=== PATIENT | female | born 1990 | race Caucasian/White ===

== ENCOUNTER → 2023-09-21 13:45 | Outpatient (CLI) | payer OTHER, SELFPAY ==
[2023-09-21 14:37] LABS: Influenza A - CEPHEID Flu A NEGATIVE (NEGATIVE); Influenza B - CEPHEID Flu B NEGATIVE (NEGATIVE); Respiratory Syncytial Virus Negative (Negative)
[2023-09-21 14:38] LABS: COVID-19 CEPHEID 4-PLEX PCR Negative (Negative)
== END ==
PROVIDERS: Family Provider Physician Assistant; Visit Provider Physician Assistant
DX: J02.9 Acute pharyngitis, unspecified (principal); R05.9 Cough, unspecified
CPT/HCPCS: 0241U; 87070

== ENCOUNTER → 2024-05-23 16:11 | Outpatient (CLI) | payer OTHER, SELFPAY ==
--- NOTE | 2024-05-23 16:14 | DI.RAD.S_ITS ---
PROCEDURE: XR FOOT LT MIN 3V INDICATIONS: bilateral foot pain TECHNIQUE: 3 views of the foot were acquired. COMPARISON: None. FINDINGS: Bones: No fractures or dislocations. No suspicious bony lesions. Minimal pes planus with weight-bearing. Soft tissues: No tibiotalar joint effusion. Achilles tendon appears normal. IMPRESSION: Minimal pes planus. No acute osseous abnormalities. No significant degenerative changes. Dictated by: Elie Sevilla M.D. on 05/23/2024 at 23:23 Approved by: Elie Sevilla M.D. on 05/23/2024 at 23:26
--- NOTE | 2024-05-23 16:14 | DI.RAD.S_ITS ---
PROCEDURE: XR FOOT RT MIN 3V INDICATIONS: bilateral foot pain TECHNIQUE: 3 views of the foot were acquired. COMPARISON: None. FINDINGS: Bones: No fractures or dislocations. No suspicious bony lesions. Borderline pes planus on weight-bearing views. Small plantar calcaneal enthesophyte. Soft tissues: No tibiotalar joint effusion. Achilles tendon appears normal. IMPRESSION: No acute fracture. Borderline pes planus. Small plantar calcaneal enthesophyte. No significant degenerative changes. Dictated by: Elie Sevilla M.D. on 05/23/2024 at 23:26 Approved by: Elie Sevilla M.D. on 05/23/2024 at 23:28
== END ==
PROVIDERS: Family Provider Physician Assistant; Referring Provider Podiatrist Foot & Ankle Surgery; Visit Provider Podiatrist Foot & Ankle Surgery
DX: M77.31 Calcaneal spur, right foot (principal); M79.672 Pain in left foot; M79.671 Pain in right foot
CPT/HCPCS: 73630

== ENCOUNTER 2025-04-02 06:13 | Day surgery (SDC) | payer OTHER, SELFPAY ==
[2025-03-25 10:44] VITALS: BMI 45.1
[2025-04-02] VITALS (7 sets, daily range): BP systolic 123–132; BP diastolic 60–81; PULSE 74–110; RESP 14–16; TEMP 36.1–36.8; O2SAT 96–98
[2025-04-02] MEDS: LACTATED RINGERS 1,000 ML 42 ML IV ×2 (06:48→09:54)
--- NOTE | 2025-04-02 07:03 | PM.HP.1 ---
History of Present Illness History of Present Illness Chief complaint: R foot/lower leg Narrative: 34 year old female here for right foot and ankle pain. She would like to proceed with surgical intervention due to continuous pain that failed conservative management that included physical therapy, orthotics, NSAIDs, and steroid injections. Pain inhibits ambulation at its worst, and the onset has been spontaneous. This negatively impacts the activities of daily livings when caring for the toddler. Patient denies n/v/f/c/sob/cp. [facility] Medical History (Updated 03/25/25 @ 10:40 by Opal Chapin RN) Anemia Epilepsy Arthritis Asthma Social History household members: spouse Smoking Status: Never smoker Meds Home Medications and Allergies Home Medications ?Medication ?Instructions ?Recorded ?Confirmed ?Type adalimumab-atto 40 mg/0.4 mL mg SUBCUT 08/01/24 08/01/24 History subcutaneous auto-injector (Amjevita(CF) Autoinjector) levetiracetam 1,000 mg tablet 1,000 mg PO BID 08/01/24 04/02/25 History (Keppra) sertraline 100 mg tablet 200 mg PO DAILY 08/01/24 04/02/25 History trazodone 50 mg tablet mg PO DAILY 08/01/24 08/01/24 History Allergies Allergy/AdvReac Type Severity Reaction Status Date / Time aspirin (ASPIRIN) Allergy Severe ANGIOEDEMA/ Verified 04/02/25 06:44 HIVES NSAIDS (Non-Steroidal Allergy Severe ANGIOEDEMA/ Verified 04/02/25 06:44 Anti-Inflamma (NSAIDS HIVES (NON-STEROIDAL ANTI-INFLAMMA) ibuprofen (IBUPROFEN) Allergy Intermediate FACIAL Verified 04/02/25 06:44 SWELLING Penicillins (PENICILLINS) AdvReac Mild VOMITING Verified 08/01/24 18:32 Assessment & Plan Assessment & Plan narrative: Patient seen and evaluated. Surgical plan: right foot planar fasciectomy, lateral plantar nerve decompression, PRP administration, and gastroc recession. Risks and benefits of the procedure discussed with all questions answered to patient's satisfaction. Reviewed potential complications that may include but not limited to the following: DVT, failure to resolve all symptoms, infection, nerve injury, bleeding, recurrence, or wound. Reviewed surgical technique and general aftercare protocols. All questions answered to patient's satisfaction with no guarantees made. Patient verbalized understanding and agreed with surgical plan. RTC for post-op. Time-Based Coding :: [TOTAL MINUTES] spent with patient and on the chart (including review of chart, obtaining history, exam, reviewing outside data, placing orders, documenting exam and treatment plan, and counseling patient) on [DATE].
--- NOTE | 2025-04-02 07:04 | PM.PREOP ---
Pre-operative Note Interval Note History & Physical reviewed/Exam performed by Physician: Yes Changes to H&P: No
[2025-04-02] MEDS: SCOPOLAMINE 1 PATCH TOP (07:23)
[2025-04-02] MEDS: ACETAMINOPHEN IV 1,000 MG/100 ML VIAL 400 MG IV (07:23)
--- NOTE | 2025-04-02 08:16 | SUR.PREOP ---
Block start time [0805] . Monitoring initiated and maintained throughout procedure. Oxygen and medications given per anesthesiologist instructions. Patient remained stable throughout procedure, no adverse reactions noted. Block end time [0813].
[2025-04-02] MEDS: THROMBIN (RECOMBINANT) 5,000 UNIT VIAL 5000 UNIT TOP (09:11)
--- NOTE | 2025-04-02 20:13 | PM.OP.1 ---
Operative Date/Time/Diagnoses Date of procedure: 04/02/25 Time of procedure: 07:45 Pre-op diagnosis: 1. Right foot plantar fasciitis 2. 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 Right leg muscle contracture Post-op diagnosis: same Procedure & Clinicians Procedure: 1. Right foot plantar fasciectomy 2. Right foot lateral plantar nerve decompression 3. Right leg gastrocnemius recession 4. Right foot and leg PRP injection Same procedure(s) as scheduled: Yes Indications: Chronic pain that failed conservative managements Surgeon: Jian Grant Assisted?: No Anesthesia Type: General and Peripheral nerve block Operative Notes Findings: Consistent with diagnosis Closure Type: primary Applied: none Estimated Blood Loss (mL): 25 Tourniquet time (min): 30 Procedure in detail: Patient was identified, marked, and consented. Regional block was performed in the pre-op holding by anesthesia. Patient was transported to operating room on a gurney and transferred onto operating able in supine position. Thigh tourniquet was appled over well-padded surface and set to 300 mmHg. Right foot was prepped and draped in the usual sterile fashion, followed by official timeout with the surgical team. Attention was directed to medial hindfoot. A curvilinear incision was made using a #15 scalpel from distal tarsal tunnel towards the calcaneal tuberosity. Sharp and blunt dissection was carried out with care to protect neurovascular structures. Both medial and central plantar fascia bands were identified. The medial band was sharply released using a #15 scalpel while a segment of central band with extensive thickening and hypertrophic changes was held with a Buddy and removed with a metzenbaum scissor. Attention was then directed to the deep fascia of abductor hallucis, which was sharply resected with release of tension immediately noted. A curved hemostat was used to remove and carefully spread apart the adhesions that entraps the lateral plantar nerve between flexor first and second layer of plantar foot muscles. Tourniquet was released at 22 minutes. Surgical sites were then irrigated using copious saline and closed using 2-0 and 3-0 vicryls and 2-0 and 3-0 nylons. 10 cc of Exparel was administered. A sterile dressing was used to cover the surgical site. Attention was then directed to the lower leg. A linear incision was made using #15 scalpel medial to midline at surgical zone 3. Sharp and blunt dissection was carried out down to the level of tendon while care was taken to retract neurovascular structures. A transverse sectioning of the gastrocnemius aponeurosis was completed using # 15 scalpel with increased ankle dorsiflexion noted. Surgical site was irrigated using copious saline and closed using 3-0 and 4-0 vicryls and 3-0 nylon. Tourniquet was released for a total of 8 minutes. At this time, 6 cc of PRP was administered in equal portion to all surgical sites. All surgical sites were cleaned and dried. Iodine soaked Adaptic was applied to all incisions, which were then covered with sterile gauze, abdominal pads, Kerlix, and cast padding. The surgical limb was then placed into a posterior splint. Patient tolerated procedure without complication and was transferred back to post-anesthesia care unit with no concerns. Complications: none Post-operative Condition: stable Disposition: same day surgery Plan for aftercare: NWB to surgical limb. Elevate above heart. Ice behind knee. Keep dressing clean, dry, and intact.
== END 2025-04-02 11:44 | disposition home or self-care (01) ==
PROVIDERS: Family Provider Physician Assistant; PCP Family Medicine; Referring Provider Podiatrist Foot & Ankle Surgery; Visit Provider Podiatrist Foot & Ankle Surgery
PROC: (CPT 29893; principal; 2025-04-02 07:45)
PROC: (CPT 27685; 2025-04-02 07:45)
DX: M72.2 Plantar fascial fibromatosis (principal); M62.461 Contracture of muscle, right lower leg; S94 Injury of nerves at ankle and foot level; G89.18 Other acute postprocedural pain
CPT/HCPCS: 27687; 28060; 64708; 64450; 81025; J0131; J0666; J0687; J1100; J1171; J2405; J2704; J3010; J7050; J7120